=== PATIENT | female | born 1970 | race Caucasian/White ===

== ENCOUNTER 2020-11-20 15:40 | Outpatient (REF) | payer OTHER, SELFPAY | END 2020-11-20 15:41 | disposition home or self-care (01) | LOC: HO.LAB 15:40 | PROVIDERS: Visit Provider Internal Medicine | DX: Z20.828 Contact with and (suspected) exposure to other viral communicable diseases (principal) | CPT/HCPCS: C9803; U0003 ==

== ENCOUNTER 2020-12-02 12:44 | Outpatient (REF) | payer OTHER, SELFPAY | END 2020-12-02 12:45 | disposition home or self-care (01) | LOC: HO.LAB 12:44 | PROVIDERS: PCP Family Medicine; Visit Provider Internal Medicine | DX: Z20.822 Contact with and (suspected) exposure to COVID-19 (principal) | CPT/HCPCS: 36415; C9803; U0003 ==

== ENCOUNTER 2021-07-24 14:30 | Outpatient (RCR) | payer OTHER, SELFPAY | END 2021-07-29 15:00 | disposition home or self-care (01) | LOC: HO.OT 14:30 | PROVIDERS: PCP Family Medicine; Visit Provider Nurse Practitioner Primary Care | DX: M25.522 Pain in left elbow (principal) | CPT/HCPCS: 97033; 97110; 97140; 97165 ==

== ENCOUNTER 2022-01-03 10:39 | Outpatient (REF) | payer OTHER, SELFPAY ==
--- NOTE | ~2022-01-03 | MM_ITS ---
EXAMINATION: MM SCREENING DIGITAL BREAST TOMOSYNTHESIS, BILATERAL CLINICAL INFORMATION: Screening. Asymptomatic. The lifetime risk of breast cancer based on the Tyrer-Cuzick Model is 11%. COMPARISON: Mammography: 05/12/2018, 10/04/2015 TECHNIQUE: Digital breast tomosynthesis is performed in both the craniocaudal and mediolateral oblique views along with computer-aided detection (CAD). Synthesized 2D images are generated from the tomosynthesis. FINDINGS: There are scattered areas of fibroglandular density (ACR BI-RADS breast composition Category b). There are no significant masses, abnormal calcifications, or other abnormalities. Parenchymal pattern is similar to prior studies. There is no developing density or architectural abnormality. The axilla and skin contours are unremarkable. No significant changes. MM/MM tomosynthesis screening BI IMPRESSION: No mammographic evidence of malignancy. ASSESSMENT: BI-RADS 1: Negative RECOMMENDATION: Routine annual mammography screening. This patient's information was entered into a reminder system with a target due date for their next mammogram.
== END 2022-01-03 10:40 | disposition home or self-care (01) ==
LOC: HO.MAMMO 10:39
PROVIDERS: Visit Provider Family Medicine
DX: Z12.31 Encounter for screening mammogram for malignant neoplasm of breast (principal)
CPT/HCPCS: 77063; 77067

== ENCOUNTER 2022-02-28 09:27 | Outpatient (REF) | payer OTHER, SELFPAY ==
[2022-02-28 10:59] LABS: Alanine Aminotransferase 18 U/L (0-31); Albumin Level 3.9 g/dL (3.5-5.0); Alkaline Phosphatase 73 U/L (39-117); Anion Gap 12 (12-20); Aspartate Amino Transferase 15 U/L (5-31); Bilirubin Total 0.5 mg/dL (0.0-1.0); Blood Urea Nitrogen 17 mg/dL (9-16); Calcium 9.2 mg/dL (8.4-10.2); Carbon Dioxide 24 mmol/L (22-29); Chloride 109 mmol/L (96-108); Cholesterol 170 mg/dL; Estimated Glomerular Filt Rate > 60; Glucose Fasting 107 mg/dL (60-99); HDL Cholesterol 38 mg/dL; LDL Cholesterol Calculated 112 mg/dl; Potassium 4.4 mmol/L (3.3-5.1); Sodium 141 mmol/L (135-145); Total Protein 7.3 g/dL (6.5-8.0); Triglycerides 104 mg/dL
[2022-02-28 11:08] LABS: Thyroid Stimulating Hormone 0.01 uIU/mL (0.32-4.0)
== END 2022-02-28 09:28 | disposition home or self-care (01) ==
LOC: HO.LAB 09:27
PROVIDERS: PCP Family Medicine; Visit Provider Family Medicine
DX: E03.9 Hypothyroidism, unspecified (principal); I10 Essential (primary) hypertension
CPT/HCPCS: 36415; 80053; 80061; 84443

== ENCOUNTER 2023-02-13 10:40 | Outpatient (REF) | payer OTHER, SELFPAY ==
--- NOTE | ~2023-02-13 | MM_ITS ---
EXAMINATION: MM SCREENING DIGITAL BREAST TOMOSYNTHESIS, BILATERAL CLINICAL INFORMATION: Screening. Asymptomatic. The lifetime risk of breast cancer based on the Tyrer-Cuzick Model is 6%. COMPARISON: Mammography: 01/03/2022, 05/12/2018, 10/04/2015 TECHNIQUE: Digital breast tomosynthesis is performed in both the craniocaudal and mediolateral oblique views along with computer-aided detection (CAD). Synthesized 2D images are generated from the tomosynthesis. FINDINGS: There are scattered areas of fibroglandular density (ACR BI-RADS breast composition Category b). There are no significant masses, abnormal calcifications, or other abnormalities. No architectural abnormality or developing density or significant change from prior studies. The axilla and skin contours are unremarkable. MM/MM tomosynthesis screening BI IMPRESSION: No mammographic evidence of malignancy. ASSESSMENT: BI-RADS 1: Negative RECOMMENDATION: Routine annual mammography screening. This patient's information was entered into a reminder system with a target due date for their next mammogram.
== END 2023-02-13 10:41 | disposition home or self-care (01) ==
LOC: HO.MAMMO 10:40
PROVIDERS: Visit Provider Advanced Practice Midwife
DX: Z12.31 Encounter for screening mammogram for malignant neoplasm of breast (principal)
CPT/HCPCS: 77063; 77067

== ENCOUNTER 2024-02-11 10:51 | Outpatient (REF) | payer OTHER, SELFPAY ==
[2024-02-11 11:36] LABS: MANUAL DIFF FLAG NO
[2024-02-11 12:03] LABS: Basophils Absolute Auto 0.1 X10*3/uL (0.0-0.2); Basophils Percent Auto 0.7 % (0-2); Eosinophils Absolute Auto 0.2 X10*3/uL (0.0-0.4); Eosinophils Percent Auto 2.7 % (0-4); Hematocrit 44.6 % (37.0-47.0); Hemoglobin 14.2 g/dl (12.0-16.0); Imm Gran Abs Auto 0.02 X10*3/uL (0.00-0.03); Imm Gran Pct Auto 0.3 % (0.0-0.4); Lymphocytes Absolute Auto 2.1 X10*3/uL (1.2-4.9); Lymphocytes Percent Auto 29.7 % (20-40); Mean Corpuscular HGB Conc 31.8 g/dl (31.0-35.0); Mean Corpuscular Hemoglobin 27.9 pg (27.0-33.0); Mean Corpuscular Volume 87.6 fL (80.0-98.0); Mean Platelet Volume 10.5 fL (9.4-12.3); Monocytes Absolute Auto 0.6 X10*3/uL (0.1-1.2); Monocytes Percent Auto 7.7 % (2-11); Neutrophils Absolute Auto 4.2 x10*3/uL (2.0-8.3); Neutrophils Percent Auto 58.9 % (45-73); Platelet Count 310 X10*3/uL (160-400); Red Blood Count 5.09 X10*6/uL (4.20-5.50); Red Cell Distribution Width 14.6 % (11.0-16.0); White Blood Count 7.1 X10*3/uL (4.8-10.8)
[2024-02-11 12:29] LABS: Sodium 141 mmol/L (135-145)
[2024-02-11 12:30] LABS: Alanine Aminotransferase 17 U/L (0-31); Alkaline Phosphatase 84 U/L (39-117); Anion Gap 11 (12-20); Aspartate Amino Transferase 18 U/L (5-31); Bilirubin Direct 0.2 mg/dL (0.0-0.5); Bilirubin Total 0.4 mg/dL (0.0-1.0); Blood Urea Nitrogen 16 mg/dL (9-16); Calcium 9.7 mg/dL (8.4-10.2); Carbon Dioxide 29 mmol/L (22-29); Chloride 106 mmol/L (96-108); Cholesterol 165 mg/dL (<200); Estimated Glomerular Filt Rate > 60; Glucose Random 89 mg/dL (60-115); HDL Cholesterol 43 mg/dL (>40); LDL Cholesterol Calculated 102 mg/dL (<100); Potassium 4.5 mmol/L (3.3-5.1); TSH reflex Free T4 0.87 uIU/mL (0.32-4.0); Triglycerides 100 mg/dL (<150); Vitamin D 25-OH Total 35.2 ng/mL (>30)
[2024-02-13 14:53] LABS: RPR Rapid Plasma Reagin NON-REACTIVE (NON-REACTIVE)
[2024-02-14 04:58] LABS: HBS Num1 1.91 mIU/mL (0-7.99); HBc Num1 0.19 S/CO (0.00-0.79); HBsAGNum1 0.41 S/CO (0.00-0.99); HIV AB/AG Nonreactive (Nonreactive); HIV Num 1 0.05 S/CO (0.00-0.99); Hepatitis A Antibody IgM 0.13 Index (0-0.79); Hepatitis B Core Antibody Nonreactive (Nonreactive); Hepatitis B Surface Antigen Negative (Negative); ~HepC Num1 0.12 S/CO (0.00-0.79); ~Hepatitis A Antibody IgM Nonreactive (Nonreactive); ~Hepatitis B Surface Antibody NONREACTIVE (Nonreactive); ~Hepatitis C Antibody Nonreactive (Nonreactive)
== END 2024-02-11 10:52 | disposition home or self-care (01) ==
LOC: HO.HHCL 10:51
PROVIDERS: Visit Provider Family Medicine
DX: Z11.4 Encounter for screening for human immunodeficiency virus [HIV] (principal); I10 Essential (primary) hypertension; E03.9 Hypothyroidism, unspecified; E55.9 Vitamin D deficiency, unspecified; Z20.2 Contact with and (suspected) exposure to infections with a predominantly sexual mode of transmission
CPT/HCPCS: 36415; 80048; 80061; 80076; 82306; 84443; 85025; 86592; 86704; 86706; 86709; 86803; 87340; 87389

== ENCOUNTER → 2024-11-16 13:00 | Outpatient (BNV) | payer BC, SELFPAY | PROVIDERS: PCP Family Medicine; Visit Provider Internal Medicine | DX: Z12.31 Encounter for screening mammogram for malignant neoplasm of breast (principal) | CPT/HCPCS: 77063; 77067 ==

== ENCOUNTER 2024-11-16 13:01 | Outpatient (REF) | payer BC, SELFPAY | END 2024-11-16 13:02 | disposition home or self-care (01) | LOC: HO.MAMMO 13:01 | PROVIDERS: PCP Family Medicine; Visit Provider Family Medicine | DX: Z12.31 Encounter for screening mammogram for malignant neoplasm of breast (principal) | CPT/HCPCS: 77063; 77067 ==

== ENCOUNTER 2025-02-17 09:59 | Outpatient (REF) | payer BC, SELFPAY ==
[2025-02-17 11:55] LABS: Alanine Aminotransferase 15 U/L (0-31); Albumin Level 3.9 g/dL (3.5-5.0); Alkaline Phosphatase 76 U/L (39-117); Anion Gap 10 (12-20); Aspartate Amino Transferase 18 U/L (5-31); Bilirubin Direct 0.1 mg/dL (0.0-0.5); Bilirubin Total 0.4 mg/dL (0.0-1.0); Blood Urea Nitrogen 18 mg/dL (9-16); Carbon Dioxide 26 mmol/L (22-29); Chloride 110 mmol/L (96-108); Cholesterol 159 mg/dL (<200); Estimated Glomerular Filt Rate > 60; Glucose Random 96 mg/dL (60-115); HDL Cholesterol 40 mg/dL (>40); LDL Cholesterol Calculated 102 mg/dL (<100); Potassium 4.7 mmol/L (3.3-5.1); Sodium 141 mmol/L (135-145); Total Protein 7.4 g/dL (6.5-8.0); Triglycerides 87 mg/dL (<150)
[2025-02-17 12:10] LABS: TSH reflex Free T4 0.23 uIU/mL (0.32-4.0)
[2025-02-17 13:33] LABS: Free T4 (Free Thyroxine) 1.35 ng/dL (0.71-1.85)
== END 2025-02-17 10:00 | disposition home or self-care (01) ==
LOC: HO.LAB 09:59
PROVIDERS: PCP Family Medicine; Visit Provider Family Medicine
DX: I10 Essential (primary) hypertension (principal); E03.9 Hypothyroidism, unspecified; E78.5 Hyperlipidemia, unspecified
CPT/HCPCS: 36415; 80048; 80061; 80076; 84439; 84443

== ENCOUNTER 2025-03-07 10:05 | Outpatient (REF) | payer BC, SELFPAY ==
--- NOTE | ~2025-03-07 | XR_ITS ---
EXAMINATION: XR TOES 2 OR MORE VIEWS LEFT HISTORY: trauma to left great toe 2 days ago, most pain at MTP joint COMPARISON: There are no prior studies available for comparison. FINDINGS: Three views of the left great toe are submitted. Osseous mineralization is normal. There is no fracture or dislocation. The joint spaces are preserved. Soft tissue calcifications lateral to the interphalangeal joint of doubtful significance. XR/XR toe LT min 2V IMPRESSION: No evidence of fracture of the left great toe. Electronically signed by: Jhon Martinez MD 03/07/2025 11:01 AM EDT
--- OUTSIDE RECORDS SUMMARY | 2025-03-07 11:37 | XMS_ITS | Encounter Summary ---
Author Organization [employer] Address [address] [facility] [address] [address] [place] [address] Care Team Providers Care Hand Mounter Name Role Phone Domi Mitchell MD Primary Care Provider +1- [phone] Encounter Details Date Type Department Care Team (Late st Contact Info) Description 01/02/2025 Orders Only [facility] [address] [place] [address] Domi Mitchell MD [address] [place] [address] Social History Tobacco Use Types Packs/Day Years Used Date Smoking Tobacco: Never Smokeless Tobacco: Never Alcohol Use Standard Drinks/Week Comments Never 0 (1 standard drink = 0.6 oz pur e alcohol) Depression Answer Date Recorded Patient Health Questionnaire-9 Score 0 02/11/2024 Patient Health Questionnaire-9 Score 0 02/11/2024 Last PHQ-9: Questionnaire Data Not on file 0 02/11/2024 Housing Stability Answer Date Recorded What is your housing situation today? I have nam de luna 12/21/[address] you li ve. Do you have problems with any of the following? None of the above 12/21/2023 Food Insecurity Answer Date Recorded Within the past 12 months, y ou worried that your food would run out before you got money to buy more: Never True 12/21/2023 Within the past 12 months,th e food you bought just didn't last and you didn't have enough money to get more: Never True Transportation Answer Date Recorded In the past 12 months, has l ack of transportation kept you from medical appts, meetings, work or from getting things needed for daily living? No 12/21/2023 Utilities Answer Date Recorded In the past 12 months, has t he electric, gas, oil or water company threatened to shut off services in your home? No 12/21/2023 Depression Answer Date Recorded Patient Health Questionnaire-2 Score 0 02/11/2024 Comments No Sex and Gender Information Value Date Recorded Sex Assigned at Female 09/21/2022 10:14 AM EDT Legal Sex Female 10:14 AM EDT Gender Identity Female 09/21/2022 10:14 AM EDT Sexual Orientation Choose not to disclose 2021 10:14 AM EDT documented as of this encounter Plan of Treatment Upcoming Encounters Date Type Department Care Team (Late st Contact Info) Description 03/13/2025 3:30 PM EDT Clinical Support [facility] [address] [place] [address] documented as of this encounter Visit Diagnoses Not on filedocumented in this encounter Additional Health Concerns Assessment Noted Time PHQ-9 Depression Total Score: 0 02/11/20 24 9:44 AM EDT documented as of this encounter Care Teams Hand Mounter Relationship Specialty Start Date End Date Domi Mitchell MD [address] [place] [address] PCP - General Family Medicine 11/22/18 documented as of this encounter
--- OUTSIDE RECORDS SUMMARY | 2025-03-07 11:37 | XMS_ITS | Encounter Summary ---
Author Organization [employer] Address [address] [facility] [address] [place] [address] Care Team Providers Care Forging Operator Name Role Phone Domi Mitchell MD Primary Care Provider +1- [phone] Reason for Visit * Reason Onset Date Comments Nurse Triage 03/06/2025 Encounter Details Date Type Department Care Team (Late st Contact Info) Description 03/06/2025 Telephone [facility] [address] [place] [address] Domi Mitchell MD [address] [place] [address] Nurse Triage Social History Tobacco Use Types Packs/Day Years [...] situation today? I have nam de luna 02/05/[address] you li ve. Do you have problems with any of the following? None of the above 02/05/2025 Food Insecurity Answer Date Recorded Within the past 12 months, y ou worried that your food would run out before you got money to buy more: Sometimes True 2024 Within the past 12 months,th e food you bought just didn't last and you didn't have enough money to get more: Sometimes True 02/05/2025 Transportation Answer Date Recorded In the past 12 months, has l ack of transportation kept you from medical appts, meetings, work or from getting things needed for daily living? No 02/05/2025 Utilities Answer Date Recorded In the past 12 months, has t he electric, gas, oil or water company threatened to shut off services in your home? No 02/05/2025 Depression Answer Date Recorded Patient Health Questionnaire-2 Score 0 02/11/2024 Internet Access Answer Date Recorded Internet Access Q1 Yes 02/05/2025 Internet Access Q2 Not on file 02/05/2025 Comments No Sex and Gender Information Value Date Recorded Sex Assigned at Female 09/21/2022 10:14 AM EDT Legal Sex Female 10:14 AM EDT Gender Identity Female 09/21/2022 10:14 AM EDT Sexual Orientation Choose not to disclose 2021 10:14 AM EDT documented as of this encounter Miscellaneous Notes * Telephone Encounter - Dorina Dalton RN - 03/06/2025 3:43 PM EDT Images from the original note were not included. Call returned to Rosalva Thomas to triage below. Reports inury to right great big toe. Per pt having swelling, pain with wearing closed toe shoes. Pt used OTC ibuprofen with mild relief. Has not been able to elevate or gilma tape. No bruising reported. [facility] of disposition[facility] on teams at time of call. Reviewed [facility] operating hours andthat wait times vary. Reviewed home care advise, ER precautions and reasons to call back. Protocol Used: Toe Injury (Adult) Protocol-Based Disposition: See in Office or Video Visit Today or Tomorrow Video visit offer not recorded Positive Triage Question: * Bad limp or can't wear shoes or sandals * All higher-acuity triage questions were negative Care Advice Discussed: * Reassurance and Education - Sprained Toe (Jammed, Stubbed Toe) * Use a Cold Pack for Pain, Swelling, or Bruising * Gilma-Tape Splinting * Reasons To Call Back - Pain becomes severe - You become worse FW: My toe Received: Today Dorina Dalton RN P [facility] T[facility] Nurse Previous Messages My toe (Newest Message First) View All Conversations on this Encounter You routed conversation to [facility] Triage Nurse5 hours ago (9:33 AM) Rosalva Rios [facility] Clinical Support (supporting Domi Mitchell MD)6 hours ago (9:16 AM) TD I had a student step on my toe yesterday at work and today my toe is killing me it's swollen and sore to the touch can I go to the walk in center after work today documented in this encounter Plan of Treatment Upcoming Encounters Date Type Department Care Team (Late st Contact Info) Description 03/13/2025 3:30 PM EDT Clinical Support [facility] [address] [place] [address] documented as of this encounter Visit Diagnoses Not on filedocumented in this encounter Additional Health Concerns Assessment Noted Time PHQ-9 Depression Total Score: 0 02/11/20 24 9:44 AM EDT documented as of this encounter Care Teams Forging Operator Relationship Specialty Start Date End Date Domi Mitchell MD [address] [place] [address] PCP - General Family Medicine 11/22/18 documented as of this encounter
--- OUTSIDE RECORDS SUMMARY | 2025-03-07 11:37 | XMS_ITS | Encounter Summary ---
Author Organization [employer] Address [address] [place] [address] [address] [place] [address] Care Team Providers Care Industrial Plant Custodian Name Role Phone Domi Mitchell MD Primary Care Provider +1- [phone] Encounter Details Date Type Department Care Team (Late st Contact Info) Description 12/14/2022 Abstract [facility] [address] [place] [address] Domi Mitchell MD [address] [place] [address] Dietary counseling; Exercise counseling Social History Tobacco Use Types Packs/Day Years Used Date Smoking Tobacco: Never Smokeless Tobacco: Never Alcohol Use Standard Drinks/Week Comments Never 0 (1 standard drink = 0.6 oz pur e alcohol) Depression Answer Date Recorded Patient Health Questionnaire-9 Score 0 12/14/2022 Depression Answer Date Recorded Patient Health Questionnaire-2 Score 0 12/14/2022 Comments Unknown Sex and Gender Information Value Date Recorded Sex Assigned at Female 09/21/2022 10:14 AM EDT Legal Sex Female 10:14 AM EDT Gender Identity Female 09/21/2022 10:14 AM EDT Sexual Orientation Choose not to disclose 2021 10:14 AM EDT COVID-19 Exposure Response Date Recorded In the last 10 days, have yo u been in contact with someone who was confirmed or suspected to have Coronavirus/COVID-19? No / Unsure 12/14/2022 9:02 AM EST documented as of this encounter Plan of Treatment Upcoming Encounters Date Type Department Care Team (Late st Contact Info) Description 03/13/2025 3:30 PM EDT Clinical Support [facility] [address] [place] [address] documented as of this encounter Procedures Procedure Name Priority Date/Time Associated Diagnosis Comments HM COLONOSCOPY Routine 01/31/2022 documented in this encounter Results * Hm Colonoscopy (01/31/2022) Colonoscopy cologuard us Historical Provider HEALTH MAINTENANCE Final Result documented in this encounter Visit Diagnoses Diagnosis Dietary counseling Dietary surveillance and counseling Exercise counseling documented in this encounter Additional Health Concerns Assessment Noted Time PHQ-9 Depression Total Score: 0 12/14/19 23 9:13 AM EST documented as of this encounter Care Teams Industrial Plant Custodian Relationship Specialty Start Date End Date Domi Mitchell MD [address] [place] [address] PCP - General Family Medicine 11/22/18 documented as of this encounter
--- OUTSIDE RECORDS SUMMARY | 2025-03-07 11:37 | XMS_ITS | Encounter Summary ---
Author Organization [employer] Address [address] [place] [address] [address] [place] [address] Care Team Providers Care Orthopedic Shoe Fitter Name Role Phone Domi Mitchell MD Primary Care Provider +1- [phone] Encounter Details Date Type Department Care Team (Late st Contact Info) Description 11/09/2022 Orders Only [facility] [address] [place] [address] Blaire Gaytan LPN Social History Tobacco Use Types Packs/Day Years Used Date Smoking Tobacco: Never Assessed Comments Unknown Sex and Gender Information Value [...] Description 03/13/2025 3:30 PM EDT Clinical Support [facility] [address] [place], [place] [id number] documented as of this encounter Visit Diagnoses Not on filedocumented in this encounter Care Teams Orthopedic Shoe Fitter Relationship Specialty Start Date End Date Domi Mitchell MD [address] [place] [address] PCP - General Family Medicine 11/22/18 documented as of this encounter
--- OUTSIDE RECORDS SUMMARY | 2025-03-07 11:37 | XMS_ITS | Clinical Summary ---
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 Active fluticasone (Flonase Allergy Relief) 50 MCG/ACT nasal spray Administer 1 spray into each nostril in the morning. Shake gently. Before first use, prime pump. After use, clean tip and replace cap. 16 g 12 024 Active cholecalciferol (Vitamin D3) 25 MCG (1000 UT) tabletIndications :Vitamin D deficiency TAKE 1 TABLET (25 MCG) BY MOUTH IN THE MORNING 90 tablet 3 025 Active Blood Pressure kit Check blood pressure three times a week, LARGE CUFF 1 kit 025 Active levothyroxine (Synthroid) 112 MCG tabletIndications :Acquired hypothyroidism Take 1 tablet (112 mcg) by mouth before breakfast. 90 tablet 3 025 2025 Active predniSONE (Deltasone) 20 MG tablet Take 2 tablets (40 mg) by mouth Once per day for 5 days. 10 tablet 025 2024 Active ibuprofen 800 MG tabletIndications :Pain Take 1 tablet (800 mg) by mouth every 8 (eight) hours if needed for moderate pain. 30 tablet 3 025 Active ibuprofen 800 MG tabletIndications :Pain TAKE 1 TABLET BY MOUTH EVERY 8 HOURS NEEDED FOR MILD PAIN. 50 tablet 3 024 2024 Discontinued(R eorder (will not trigger notification to Pharmacy)) levothyroxine (Synthroid, Levoxyl) 125 MCG tabletIndications :Acquired hypothyroidism TAKE 1 TABLET BY MOUTH EVERY DAY 90 tablet 3 025 2024 Discontinued Blood Pressure kitIndications:Be nign hypertension Check bp three times a week 1 kit 025 2024 Discontinued(A lternate therapy) Active Problems Problem Noted Date Diagnosed Date Encounter for screening mamm ogram for malignant neoplasm of breast 02/14/2025 Exercise counseling 02/14/2025 Assessment & Plan (02/14/2025 3:04 PM EDT): Exercise Recommendations: At least 150 minutes of moderate-intensity physical activity per week, or an equivalent combination of moderate- and vigorous-intensity activity Dietary counseling 02/14/2025 Assessment & Plan (02/14/2025 3:04 PM EDT): Dietary Recommendations: Fruits, vegetables, whole grains, protein foods, and fat-free or low-fat dairy products are healthy choices. Eat different types of protein foods in your diet. This can include seafood, lean meats, poultry, beans, peas, lentils, nuts, seeds, soy products, and eggs. Limit foods and beverages higher in added sugars, saturated fat, and sodium. Screening for colon cancer 02/14/2025 Overview (02/21/2025): Colonoscopy done 01/31/2022 -Cologuard negative 01/2625 Assessment & Plan (02/14/2025 3:02 PM EDT): Colonoscopy done 01/31/2022 -ColoGUARD sent 02/13/25 Right knee pain 12/21/2024 Assessment & Plan (12/21/2024 11:36 AM EST): Improved. Stretching reviewed. Return if symptoms do not improve and consider x ray and physical therapy referral. Cardiac risk counseling 03/31/2024 Overview (02/14/2025): Calculated 02/14/25: low risk The 10-year ASCVD risk score (Quinton LOVE, et al., 2019) is: 2% Values used to calculate the score: Age: 54 years Sex: Female Is Non- : No Diabetic: No Tobacco smoker: No Systolic Blood Pressure: 132 mmHg Is BP treated: No HDL Cholesterol: 43 mg/dL Total Cholesterol: 165 mg/dL Lab Results Component Value Date LDLCHOL 112 (H) 12/14/2022 -Tobacco cessation: not applicable -Statin therapy:N/A -Importance of moderate physical activity and nutrition interventions discussed. External hemorrhoid 02/11/2024 Assessment & Plan (02/11/2024 10:32 AM EDT): Non thrombosed. Avoid constipation. Other specified health status 04/06/2023 Overview (02/14/2025): -next physical due after 02/14/26 -Referral made to [facility] 02/11/2024 -dental home is [facility] proxy paperwork completed by the patient 02/11/2024 Assessment & Plan (02/14/2025 3:10 PM EDT): -next physical due after 02/14/26 -Referral made to [facility] 02/11/2024 -dental home is [facility] [place] proxy paperwork completed by the patient 02/11/2024 Assessment & Plan (02/11/2024 10:20 AM EDT): -next physical due after 02/10/2025 -Referral made to [facility] 02/11/2024 -dental home is [facility] proxy paperwork completed by the patient 02/11/2024 Family planning 12/11/2022 Overview (12/11/2022): She had mirena sometimes in 2016 with energy director but recalled me putting it in. She is due for having it removal will refer to Angeli goldman Assessment & Plan (12/11/2022 9:00 AM EST): She had mirena sometimes in 2016 with energy director but recalled me putting it in. She is due for having it removal will refer to Angeli goldman Left elbow pain 12/11/2022 Overview (12/11/2022): Occupational Therapy for L forearm pain. Reason for referral: L forearm pain, Clinical information/comments: 50 yo w/ 1 mo L forearm pain, worse w/ movement/pronation. Assessment & Plan (01/29/2023 11:37 AM EST): Much better with new brace. Assessment & Plan (12/11/2022 9:01 AM EST): Occupational Therapy for L forearm pain. Reason for referral: L forearm pain, Clinical information/comments: 50 yo w/ 1 mo L forearm pain, worse w/ movement/pronation. Left forearm pain 12/11/2022 Overview (02/14/2025): Pain just below L elbow, worse w/ movement/pronation, a/w decreased strength in L hand. Pain improves w/ heat, ibuprofen, OTC band. Recommended to cont with above, recommend ice as well, will refer for OT. pt declines work note. Let us know if sx worsen/persist. Assessment & Plan (12/11/2022 9:02 AM EST): Pain just below L elbow, worse w/ movement/pronation, a/w decreased strength in L hand. Pain improves w/ heat, ibuprofen, OTC band. Recommended to cont with above, recommend ice as well, will refer for OT. pt declines work note. Let us know if sx worsen/persist. Benign hypertension 01/19/2022 Overview (02/14/2025): Slightly elevated in clinic. Goal <130/80 -prescribed home monitor and encouraged to take regular logs at home. 3/26/25 -Off medications, might need to start again if remains elevated at home. Assessment & Plan (02/14/2025 3:12 PM EDT): Slightly elevated in clinic. Goal <130/80 -prescribed home monitor and encouraged to take regular logs at home. 02/14/25 -Off medications, might need to start again if remains elevated at home. Assessment & Plan (02/11/2024 10:29 AM EDT): Well controlled off meds. Continue to do home monitors. Assessment & Plan (01/29/2023 11:36 AM EST): Well controlled off meds. Assessment & Plan (12/14/2022 9:57 AM EST): Not controlled. Home BP machine given. Pt will keep a log. Will f/u 1 month. Acquired hypothyroidism 04/07/2012 Overview (02/21/2025): Lab Results Component Value Date TSH 0.23 (L) 02/17/2025 TSH 0.87 02/11/2024 TSH 0.01 (L) 12/14/2022 -ordered repeat labs Nov 2024 -levothyroid decreased to 112 mch from 125mcg 02/21/25 Assessment & Plan (02/14/2025 3:31 PM EDT): Lab Results Component Value Date TSH 0.87 02/11/2024 TSH 0.01 (L) 12/14/2022 Continue levothyroxine 150 mcg daily. -ordered repeat labs Nov 2024 Assessment & Plan (02/11/2024 10:17 AM EDT): Continue levothyroxine 150 mcg daily. Lab Results Component Value Date TSH 0.01 (L) 12/14/2022 Assessment & Plan (01/29/2023 11:38 AM EST): TSH low, decreased levothyroxine to 125 mcg daily 12/14/22.\ Will recheck. Assessment & Plan (12/11/2022 8:59 AM EST): TSH was at goal on 11/2018 at 0.40. Continue levothyroxine 150 mcg daily. Allergic rhinitis 04/07/2012 Acute sinusitis 04/07/2012 Obesity 04/07/2012 Overview (02/14/2025): Discussed weight, diet, exercise with patient in relation to health conditions. Used motivational interviewing to illicit change talk and established initial goals with patient. Assessment & Plan (02/14/2025 3:05 PM EDT): Discussed weight, diet, exercise with patient in relation to health conditions. Used motivational interviewing to illicit change talk and established initial goals with patient. Resolved Problems Problem Noted Date Diagnosed Date Resolved Date Annual physical exam 02/11/2024 025 Sinus arrest 01/22/2023 01/29/2023 Encounters Date Type Department Care Team Description 03/07/2025 9:20 AM EDT Office Visit [facility] [address] [place] [phone] Pain of great toe, left (Primary Dx); Benign hypertension; Pain 03/06/2025 Telephone [facility] [address] [place] [phone] Domi Mitchell MD Nurse Triage 02/21/[address] [address] Domi Mitchell MD Results 02/21/2025 Orders Only [address] [address] Domi Mitchell MD Acquired hypothyroidism (Primary Dx) 02/17/2025 Orders Only [address] [address] Domi Mitchell MD 02/14/2025 2:45 PM EDT Office Visit [address] [address] Domi Mitchell MD Benign hypertension (Primary Dx); Acquired hypothyroidism; Class 3 severe obesity due to excess calories with body mass index (BMI) of 40.0 to 44.9 in adult, unspecified whether serious comorbidity present (CMS/HCC); Exercise counseling; Dietary counseling; Screening for colon cancer; Encounter for immunization; Other specified health status; Skin tag 02/14/2025 Travel 02/13/[address] [address] Domi Mitchell MD chartprep 02/05/2025 Patient Outreach [address] [address] Domi Mitchell MD Care Coordination (CHW outreach for SDOH food needs-referral completed /) 02/05/2025 Patient Outreach [address] [address] Domi Mitchell MD Pre-visit Planning (SDOH Screening positive and Tobacco screening negative) 01/02/2025 Orders Only [address] [address] Domi Mitchell MD 12/21/2024 9:15 AM EST Office Visit [address] [address] Domi Mitchell MD Right knee pain, unspecified chronicity (Primary Dx); Encounter for immunization; Screening for colon cancer; Acquired hypothyroidism; Dyslipidemia; Benign hypertension 12/21/2024 Travel 12/19/[address] [address] Domi Mitchell MD nurse traige 12/13/[address] [address] Domi Mitchell MD Acquired hypothyroidism; Vitamin D deficiency from Last 3 Months Immunizations Name Administration Dates Next Due Hep B, adult 02/14/2025,12/21/2024 Influenza injectable quadriv alent IIV4 with preservative 10/22/2016 Influenza injectable quadriv alent preservative free 08/17/2023,09/14/2022,08/03/2021,2018,12/08/2018,10/04/2015 Influenza, IIV3, injectable 09/21/2014 Influenza, Injectable, MDCK, preservative free 08/15/2024 MMR 10/09/2020,04/27/2013 Moderna Covid-19 Vaccine 12+ 11/26/2021 Pfizer Covid-19 Vaccine 12+ 01/13/2021, Tdap 10/04/2015 Zoster, Recombinant 07/03/2021,04/30/2021 Family History Medical History Relation Name Comments Arthritis Mother Asthma Mother Hypertension Mother high blood sugar Mother Relation Name Status Comments Mother Social History Tobacco Use Types Packs/Day Years Used Date Smoking Tobacco: Never Smokeless Tobacco: Never Tobacco Cessation:Counseling Given: Not Answered Alcohol Use Standard Drinks/Week Comments Never 0 [...] not to disclose 2021 10:14 AM EDT Last Filed Vital Signs Vital Sign Reading Time Taken Comments Blood Pressure 174/104 03/07/2025 10:14 AM EDT Pulse 67 03/07/2025 9:22 AM EDT Temperature 36.7 ??C (98 ??F) 03/07/2025 9:22 AM EDT Respiratory Rate 17 03/07/2025 9:22 AM EDT Oxygen Saturation 96% 03/07/2025 9:22 AM EDT Inhaled Oxygen Concentration - - Weight 108 kg (238 lb 9.6 oz) 03/07/2025 9:22 AM EDT Height 157.5 cm (5' 2 ) 02/14/2025 2:51 PM EDT Body Mass Index 43.64 02/14/2025 2:51 PM EDT Plan of Treatment Upcoming Encounters Date Type Department Care Team (Late st Contact Info) Description 03/13/2025 3:30 PM EDT Clinical Support [address] [phone] Health Maintenance Due Date Last Done Comments CT Colonography 1970 FIT 1970 Sigmoidoscopy 1970 Colonoscopy 01/31/2025 01/31/2022 Depression Screening 02/10/2025 02/11/2024, 02/11/20 24 Colorectal Cancer Screening 02/16/2025 Hepatitis B Vaccines (3 of 3 - 19+ 3-dose series) 06/20/2025 02/14/2025, 12/21/2024 DTaP/Tdap/Td Vaccines (2 - Td or Tdap) 10/04/2025 10/04/2015 Alcohol/Substance Use Screening 12/21/2025 12/21/2024 COVID-19 Vaccine ( season) 2025 10/02/2022, 11/26/2021, 01/13/2021, Additional history exists Postponed from 07/23/2024 (Patient Refused) Pneumococcal Vaccine: 50+ Years (1 of 1 - PCV) 12/21/2025 Postponed from 2020 (Patient Refused) SDOH Screening 02/05/2026 02/05/2025 FOBT 02/15/2026 02/15/2025 Tobacco Screening 03/07/2026 03/07/2025 Cervical Cancer Screening 09/11/2026 HPV/Cotest 09/11/2026 09/11/2021 Pap Smear 09/11/2026 09/11/2021, 09/11/2021 Mammogram 11/16/2026 11/16/2024, 01/21, 01/03/2022, Additional history exists FIT DNA/Cologuard 02/16/2028 02/15/2025, , 01/31/2022 Lipid Panel 02/17/2030 02/17/2025, 01/21, 12/14/2022 RSV Patients and Patients Aged 60 years or older (1 - 1-dose 75+ series) 2045 Zoster Vaccines Completed 07/03/2021, 04/30/2021 HIV Screening Completed 02/11/2024, 12/14/2022 Hepatitis C Screening Completed 02/11/2024, 023 Influenza Vaccine Completed 08/15/2024, , 09/14/2022, Additional history exists HIB Vaccines Aged Out No longer eligi ble based on patient's age to complete this topic HPV Vaccines Aged Out No longer eligi ble based on patient's age to complete this topic Hepatitis A Vaccines Aged Out No long er eligible based on patient's age to complete this topic IPV Vaccines Aged Out No longer eligi ble based on patient's age to complete this topic Meningococcal Vaccine Aged Out No mike amanda eligible based on patient's age to complete this topic RSV under 20 months Aged Out No longe r eligible based on patient's age to complete this topic Rotavirus Vaccines Aged Out No longer eligible based on patient's age to complete this topic Procedures Procedure Name Priority Date/Time Associated Diagnosis Comments XR TOES 2+ VIEWS LEFT Routine 03/07/2025 10:05 AM EDT Pain of great toe, left T4, FREE Routine 02/17/2025 10:09 AM EDT TSH W/REFLEX TO FT4 Routine 02/17/2025 1 0:09 AM EDT Acquired hypothyroidism BASIC METABOLIC PANEL Routine 02/17/2025 10:09 AM EDT Benign hypertension LIPID PANEL, STANDARD Routine 02/17/2025 10:09 AM EDT Dyslipidemia HEPATIC FUNCTION PANEL Routine 02/17/2025 10:09 AM EDT Dyslipidemia HM FIT DNA/COLOGUARD CANCER SCREENING Routine 02/15/2025 SKIN EXCISION Routine 02/14/2025 3:16 PM EDT Skin tag LAB COLOGUARD?? COLON CANCER SCREEN Routine 02/13/2025 7:30 AM EDT Screening for colon cancer BI MAMMOGRAM SCREENING TOMOSYNTHESIS BILATERAL Routine 11/16/2024 1:17 PM EST HEPATITIS PANEL, GENERAL Routine 02/11/2024 10:55 AM EDT Routine screening for STI (sexually transmitted infection) HIV 1/2 ANTIGEN/ANTIBODY, FOURTH GENERATION W/RFL Routine 02/11/2024 10:55 AM EDT Routine screening for STI (sexually transmitted infection) HM COLONOSCOPY Routine 01/31/2022 THINPREP IMAGING PAP AND HPV MRNA E6/E7, WITH CT/NG, TRICHOMONAS Routine 09/11/2021 3:55 PM EDT PAP SMEAR Routine 09/11/2021 12:00 AM EDT from Last 3 Months or Most Recently Relevant to Health Maintenance Results * XR Toes 2+ Left (03/07/2025 10:05 AM EDT) Anatomical Region Laterality Modality Lower Extremities, Toes Left [facility] 03/07/2025 10:0 5 AM EDT Narrative 03/07/2025 11:03 AM EDT ?[place] [facility] ?[address] ?[place] [address] ?XRay Report ? Signed ? Patient: Deschaine,Rosalva M ?MR#: [id number] ?? [id number] ? : 1970 ?Acct:[id number] ? Age/Sex: 54 / F ?ADM Date: 03/07/25 ? Loc: HO.HHCX ? Attending Dr: Sabsa Loya MD ? Ordering Physician: SABAS LOYA MD ?? Date of Service: 03/07/25 ?? Procedure(s): XR toe LT min 2V ?? Accession Number(s): [id number] ? cc: SABAS LOYA MD ? EXAMINATION: ??XR TOES 2 OR MORE VIEWS LEFT ? HISTORY: trauma to left great toe 2 days ago, most pain at MTP joint ? COMPARISON: There are no prior studies available for comparison. ? FINDINGS: ? Three views of the left great toe are submitted. ??Osseous ?? mineralization is normal. ??There is no fracture or dislocation. ??The ?? joint spaces are preserved. ??Soft tissue calcifications lateral to the ?? interphalangeal joint of doubtful significance. ? XR/XR toe LT min 2V ?? IMPRESSION: ? No evidence of fracture of the left great toe. ? Electronically signed by: ??Jhon Martinez MD ??03/07/2025 11:01 AM EDT ? Dictated By: ?Jhon Martinez MD ? Signed By: ?<Electronically signed by Jhon Martinez MD in OV> ?03/07/25 1101 ? DD/ 1005 ? TD/TT: 03/07/25 1055 ? Manager Multicultural: ? Procedure Note Calos Mojica - 03/07/[address] [address] XRay Report Signed Patient: Rosavla Thomas MMR#: [id number] : 1970Acct:[id number] Age/Sex: 54 / FADM Date: 03/07/25 Loc: HO.HHCX Attending Dr: Sabas Loya MD Ordering Physician: SABAS LOYA MD Date of Service: 03/07/25 Procedure(s): XR toe LT min 2V Accession Number(s): [id number] cc: SABAS LOYA MD EXAMINATION: XR TOES 2 OR MORE VIEWS LEFT HISTORY: trauma to left great toe 2 days ago, most pain at MTP joint COMPARISON: There are no prior studies available for comparison. FINDINGS: Three views of the left great toe are submitted. Osseous mineralization is normal. There is no fracture or dislocation. The joint spaces are preserved. Soft tissue calcifications lateral to the interphalangeal joint of doubtful significance. XR/XR toe LT min 2V IMPRESSION: No evidence of fracture of the left great toe. Electronically signed by: Jhon Martinez MD 03/07/2025 11:01 AM EDT RP Dictated By: Jhon Martinez MD Signed By: <Electronically signed by Jhon Martinez MD in OV> 03/07/25 1101 DD/ 1005 TD/TT: 03/07/25 1055 Manager Multicultural: Sabas Loya MD IMG XR PROCEDURES Final Result * (ABNORMAL) TSH with Reflex to Free T4 (02/17/2025 10:09 AM EDT) TSH reflex Free T4 0.23(L) 0.32 - 4.0 uIU/mL [facility] Blood 02/17/2025 10:0 9 AM EDT 02/17/2025 10:09 AM EDT Domi Mitchell MD LAB BLOOD ORDERABLES Final Result Performing Organization Address City/State/[facility] Co de Phone Number [facility] [address] [place] [phone] * T4, Free (02/17/2025 10:09 AM EDT) Free T4 (Free Thyroxine) 1.35 0.71 - 1.85 ng/dL [facility] 02/17/2025 10:0 9 AM EDT 02/17/2025 10:09 AM EDT Domi Mitchell MD LAB BLOOD ORDERABLES Final Result [facility] [address] [place] [address] [phone] * Hepatic Function Panel (02/17/2025 10:09 AM EDT) Bilirubin, Total 0.4 0.0 - 1.0 mg/dL [facility] Bilirubin, Direct 0.1 0.0 - 0.5 mg/dL [facility] Aspartate Amino Transferase 18 5 - 31 U/L [facility] Alanine Aminotransferase 15 0 - 31 U/L [facility] Total Protein 7.4 6.5 - 8.0 g/dL [facility] Albumin Level 3.9 3.5 - 5.0 g/dL [facility] Alkaline Phosphatase 76 39 - 117 U/L [facility] Blood Venous blood specimen / Unknown 02/17/2025 10:09 AM EDT 02/17/2025 10:09 AM EDT Domi Mitchell MD LAB BLOOD ORDERABLES Final Result Performing Organization Address City/[facility]/ZIP Co de Phone Number [facility] [address] [place] [phone] [phone] * (ABNORMAL) Lipid Panel, Standard (02/17/2025 10:09 AM EDT) Triglycerides 87 <150 mg/dL [facility] Comment:Desirable Triglyceri de: less than 150 mg/dLBorderline High Triglyceride 150-199 mg/dLHigh Triglyceride: 200-499 mg/dLVery High Triglyceride: greater than or equal to 5OO mg/dL Cholesterol 159 <200 mg/dL [facility] Comment:Desirable Cholestero l: less than 200 mg/dLBorderline High Cholesterol: 200-239 mg/dLHigh Cholesterol: greater than 239 mg/dL LDL Cholesterol Calculated 102(H) <100 mg/dL [facility] Comment:Desirable LDL: less than 100 mg/dLNear Optimal/Above Optimal LDL: 110- 129 mg/dLBorderline High LDL: 130-159 mg/dLHigh LDL: 160-189 mg/dLVery High LDL: greater than or equal to 190 mg/dL HDL Cholesterol 40(L) >40 mg/dL [facility] Comment:Desirable HDL: great er than 40 mg/dL Note: This HDL assay may give artificially low results in patients with liver disease. Blood Venous blood specimen / Unknown 02/17/2025 10:09 AM EDT 02/17/2025 10:09 AM EDT Domi Mitchell MD LAB BLOOD ORDERABLES Final Result Performing Organization Address [facility] Co de Phone Number [facility] [address] [place] [phone] * (ABNORMAL) Basic Metabolic Panel (02/17/2025 10:09 AM EDT) Sodium 141 135 - 145 mmol/L [facility] Potassium 4.7 3.3 - 5.1 mmol/L [facility] Chloride 110(H) 96 - 108 mmol/L [facility] Carbon Dioxide 26 22 - 29 mmol/L [facility] Anion Gap 10(L) 12 - 20 [facility] Urea Nitrogen (BUN) 18(H) 9 - 16 mg/dL [facility] Creatinine, Serum 0.79 0.5 - 1.4 mg/dL [facility] Estimated Glomerular Filt Rate >60 [facility] Comment:Chronic Kidney Disea se: Estimated GFR < 60 mL/min/[id number] Kidney Disease: Estimated GFR < 15 mL/min/1.73m2 Glucose 96 60 - 115 mg/dL [facility] Calcium 9.0 8.4 - 10.2 mg/dL [facility] Blood Venous blood specimen / Unknown 02/17/2025 10:09 AM EDT 02/17/2025 10:09 AM EDT Domi Mitchell MD LAB BLOOD ORDERABLES Final Result Performing Organization Address City/[facility]/ZIP Co de Phone Number [facility] [address] [place] [address] [phone] * FIT DNA/Cologuard Cancer Screening (02/15/2025) Cologuard Cancer Screen Negative Stool Historical Provider HEALTH MAINTENANCE Final Result * Skin excision (02/14/2025 3:16 PM EDT) Narrative Domi Mitchell MD - 02/14/2025 3:16 PM EDT Domi Mitchell MD ? 02/14/2025 ??5:01 PM Skin excision Date/Time: 02/14/2025 3:16 PM Performed by: Domi Mitchell MD Authorized by: Domi Mitchell MD ?? Consent: ??Consent obtained: ??Verbal ??Consent given by: ??Patient ??Risks, benefits, and alternatives were discussed: yes ?Risks discussed: ??Bleeding, infection and pain ??Alternatives discussed: ??Observation, referral and no treatment [place] protocol: ??Procedure explained and questions answered to patient or proxy's satisfaction: yes ?Immediately prior to procedure, a time out was called: yes ?Patient identity confirmed: ??Verbally with patient Number of Lesions: 2 Lesion 1: ??Skin lesion 1 location: below left breast. ??Initial size (mm): 20 ??Malignancy: benign lesion ?Destruction method: scissors used for extraction ?Closure complexity: simple ?? Lesion 2: ??Skin lesion 2 location: below left breast. ??Initial size (mm): 20 ??Malignancy: benign lesion ?Closure complexity: simple ?? us Domi Mitchell MD DERM PROCEDURE ORDERABLES Final Result * Cologuard?? colon cancer screening (02/13/2025 7:30 AM EDT) Cologuard Result Negative Negative 02/18/20 4:43 PM EDT [employer] (CLIA #:[id number]) Comment: NEGATIVE TEST RESULT. A negative Cologuard result indicates a low likelihood that a colorectal cancer (CRC) or advanced adenoma (adenomatous polyps with more advanced pre-malignant features) ??is present. The chance that a person with a negative Cologuard test has a colorectal cancer is less than 1 in 1500 (negative predictive value >99.9%) or has an ??advanced adenoma is less than ??5.3% (negative predictive value 94.7%). These data are based on a prospective cross-sectional study of 10,000 individuals at average risk for colorectal cancer who were screened with both Cologuard and colonoscopy. (Tamar Rivera et al, N Engl J Med 2014;370(14):1286- 1297) The normal value (reference range) for this assay is negative. COLOGUARD RE-SCREENING RECOMMENDATION: Periodic colorectal cancer screening is an important part of preventive healthcare for asymptomatic individuals at average risk for colorectal cancer. ??Following a negative Cologuard result, the [place] [employer] and U.S. Multi-Society Task Force screening guidelines recommend a Cologuard re-screening interval of 3 years. References: [place] [employer] Guideline for Colorectal Cancer Screening: https://www.cancer.org/cancer/uuumb-ivkcfe-gtxedx/zfdrtswek-azdrjskkq-ccsneof/ac s-rec ommendations.html.; Ricardo DK, Judi AARON, Mendez JuniorK, Colorectal Cancer Screening: Recommendations for Physicians and Patients from the U.S. Multi-Society Task Force on Colorectal Cancer Screening , Am J Gastroenterology 2017; 112:6610-6197. TEST DESCRIPTION: Composite algorithmic analysis of stool DNA-biomarkers with hemoglobin immunoassay. ?? Quantitative values of individual biomarkers are not reportable and are not associated with individual biomarker result reference ranges. Cologuard is intended for colorectal cancer screening of adults of either sex, 45 years or older, who are at average-risk for colorectal cancer (CRC). Cologuard has been approved for use by the U.S. FDA. The performance of Cologuard was established in a cross sectional study of average-risk adults aged 50-84. Cologuard performance in patients ages 45 to 49 years was estimated by sub-group analysis of near-age groups. Colonoscopies performed for a positive result may find as the most clinically significant lesion: colorectal cancer [4.0%], advanced adenoma (including sessile serrated polyps greater than or equal to 1cm diameter) [20%] or non- advanced adenoma [31%]; or no colorectal neoplasia [45%]. These estimates are derived from a prospective cross-sectional screening study of 10,000 individuals at average risk for colorectal cancer who were screened with both Cologuard and colonoscopy. (Tamar Hung al, N Engl J Med 2014;370(14):2092-2655.) Cologuard may produce a false negative or false positive result (no colorectal cancer or precancerous polyp present at colonoscopy follow up). A negative Cologuard test result does not guarantee the absence of CRC or advanced adenoma (pre-cancer). The current Cologuard screening interval is every 3 years. ([place] [employer] and U.S. Multi-Society Task Force). Cologuard performance data in a 10,000 patient pivotal study using colonoscopy as the reference method can be accessed at the following location: www.LiveHotSpot/results. Additional description of the Cologuard test process, warnings and precautions can be found at www.OjOs.comogeTectrd.com. Stool specimen (specimen) 02/13/2025 7:30 AM EDT 02/15/2025 12:39 PM EDT Domi Mitchell MD LAB MOLECULAR DIAGNOSTICS ORDERABLES Final Result [employer] (CLIA #:[id number]) [address] [place] [address], * BI Mammogram Screening Tomosynthesis Bilateral (11/16/2024 1:17 PM EST) Anatomical Region Laterality Modality Breast Bilateral Mammography 11/16/2024 1:17 PM EST Narrative 11/28/2024 4:57 PM EST ? [facility] ? [address] ?[place] [address] ? Mammography Report ? Signed ? Patient: Deschaine,Rosalva M ?MR#: [id number] ?? [id number] ? : 1970 ?Acct:[id number] ? Age/Sex: 54 / F ?ADM Date: 12/26/24 ? Loc: HO.MAMMO ? Attending Dr: Domi Mitchell MD ? Ordering Physician: Domi Mitchell MD ?Results: 1N ?? egative ? Date of Service: 11/16/24 ?Follow Up: 1 Year From Orig ?? inal Mammogram ? Procedure(s): MM tomosynthesis screening BI ?? Accession Number(s): [id number] ? cc: Domi Mitchell MD ? EXAMINATION: ?? MM SCREENING DIGITAL BREAST TOMOSYNTHESIS, BILATERAL ? CLINICAL INFORMATION: ? Screening. Asymptomatic. ? COMPARISON: ?? Mammography: Comparison is made with available priors ? TECHNIQUE: ?? Digital breast mammography with tomosynthesis is performed in both the ?? craniocaudal and mediolateral oblique views along with computer-aided ?? detection (CAD). ? FINDINGS: ?? There are scattered areas of fibroglandular density (ACR BI-RADS breast ?? composition Category b). ? There are no significant masses, abnormal calcifications, or other ?? abnormalities. ? MM/MM tomosynthesis screening BI ?? IMPRESSION: ?? No mammographic evidence of malignancy. ? ASSESSMENT: ? BI-RADS BI-RADS 1 - Negative ? RECOMMENDATION: ?? Routine annual mammography screening. ? 1 year F/U ? This examination should not preclude the clinical evaluation of a ?? suspicious palpable abnormality. ? This patient's information was entered into a reminder system with a ?? target due date for their next mammogram. ? Electronically signed by: ??Arianna Amezquita DO ??11/28/2024 04:54 PM EST ?? RP ? Dictated By: ?Arianna Amezquita DO ? Signed By: ?<Electronically signed by Arianna Amezquita, DO in OV> ? 11/28/241653 ? DD/ 1317 ? TD/TT: 11/16/24 1327 ? Manager Multicultural: ? Procedure Note Donotuseinterpreter, Image - [facility]/28/20[facility] [address] [place] [address] Mammography Report Signed Patient: Rosalva Thomas MMR#: [id number] : 1970Acct:[id number] Age/Sex: 54 / FADM Date: 11/16/24 Loc: HO.MAMMO Attending Dr: Domi Mitchell MD Ordering Physician: Domi Mitchell MDResults: 1N egative Date of Service: 11/16/24Follow Up: 1 Year From Orig inal Mammogram Procedure(s): MM tomosynthesis screening BI Accession Number(s): [id number] cc: Domi Mitchell MD EXAMINATION: MM SCREENING DIGITAL BREAST TOMOSYNTHESIS, BILATERAL CLINICAL INFORMATION: Screening. Asymptomatic. COMPARISON: Mammography: Comparison is made with available priors TECHNIQUE: Digital breast mammography with tomosynthesis is performed in both the craniocaudal and mediolateral oblique views along with computer-aided detection (CAD). FINDINGS: There are scattered areas of fibroglandular density (ACR BI-RADS breast composition Category b). There are no significant masses, abnormal calcifications, or other abnormalities. MM/MM tomosynthesis screening BI IMPRESSION: No mammographic evidence of malignancy. ASSESSMENT: BI-RADS BI-RADS 1 - Negative RECOMMENDATION: Routine annual mammography screening. 1 year F/U This examination should not preclude the clinical evaluation of a suspicious palpable abnormality. This patient's information was entered into a reminder system with a target due date for their next mammogram. Electronically signed by: Arianna Amezquita DO 11/28/2024 04:54 PM EST RP Dictated By: Arianna Amezquita DO Signed By: <Electronically signed by Arianna Amezquita DO in OV> 11/28/24 1654 DD/ 1317 TD/TT: 11/16/24 1327 Manager Multicultural: Domi Mitchell MD IMG BI PROCEDURES Final Re sult * Hepatitis A,B,C Profile (02/11/2024 10:55 AM EDT) Hepatitis A IgM Nonreactive Nonreactive [facility] Comment:IgM antibodies to MARR V not detected; does not exclude earlyacute or recovered HAV infection. ~Hepatitis B Surface Antibody NONREACTIVE Nonreactive [facility] Comment:Nonreactive: < 8.00 mIU/mL Hepatitis B Core Antibody Nonreactive Nonreactive [facility] Hepatitis C Antibody Nonreactive Nonreactive [facility] Comment:Antibodies to HCV no t detected; does not exclude early acuteHCV infection. Hepatitis B Surface Ag Negative Negative [facility] Blood Venous blood specimen / Unknown 02/11/2024 10:55 AM EDT 02/11/2024 11:14 AM EDT Domi Mitchell MD LAB BLOOD ORDERABLES Final Result [facility] [address] [place] [phone] * HIV-1/2 Antigen and Antibodies, Fourth Generation, with Reflexes (02/11/2024 10:55 AM EDT) HIV AB/AG Nonreactive Nonreactive [facility] Comment:HIV-1 p24 Ag and/or HIV-1/HIV-2 Ab not detected.A test result that is nonreactive does not exclude thepossibility of exposure to or infection with HIV-1 and/orHIV-2. Nonreactive results in this assay for individualswith prior exposure to HIV-1 and/or HIV-2 may be due toantigen and antibody levels that are below the limit ofdetection of this assay.The [email or web address] HIV Ag/Ab Combo assay result andsupplemental assay results should be interpreted inconjunction with the patient's clinical presentation,history and other laboratory results. If the results areinconsistent with clinical evidence, additional testing issuggested to confirm the result. Blood Venous blood specimen / Unknown 02/11/2024 10:55 AM EDT 02/11/2024 11:14 AM EDT Domi Mitchell MD LAB BLOOD ORDERABLES Final Result [facility] [address] [place] [address] [phone] * Hm Colonoscopy (01/31/2022) Colonoscopy cologuard Historical Provider HEALTH MAINTENANCE Final Result * THINPREP TIS PAP AND HPV mRNA E6/E7, CT/NG, TRICH (09/11/2021 3:55 PM EDT) Chlamydia trachomatis RNA, TMA, Urogenital NOT DETECTED NOT DETECTED [facility] Clinical Information: None given [facility] COMMENT SEE COMMENT [facility] Comment: The analytical performance characteristics of this assay, when used to test SurePath(TM) specimens have been determined by [employer]. The modifications have not been cleared or approved by the FDA. This assay has been validated pursuant to the CLIA regulations and is used for clinical purposes. ?? For additional information, please refer to https://education.[employer] Energy/faq/DLI670 (This link is being provided for information/ educational purposes only.) ?? COMMENT SEE COMMENT [facility] Comment: EXPLANATORY NOTE: ? The Pap is a screening test for cervical cancer. It is ?? not a diagnostic test and is subject to false negative ?? and false positive results. It is most reliable when a ?? satisfactory sample, regularly obtained, is submitted ?? with relevant clinical findings and history, and when ?? the Pap result is evaluated along with historic and ?? current clinical information. ?? COMMENT: This Pap test has been evaluated with computer assisted technology. [facility] Electron Beam Machine Welder Setter: SEE COMMENT [facility] Comment: MAERICK Arredondo(ASCP) CT screening location: [address] ??[address] HPV nRNA E6/E7 Not Detected Not Detected [facility] Comment: Methodology: Drive Tester-Mediated Amplification This assay detects E6/E7 viral messenger RNA (mRNA) from 14 high-risk HPV types (16,18,31,33,35,39,45,51,52,56,58,59,66,68). ? The analytical performance characteristics of this assay have been determined by [employer]. The modifications have not been cleared or approved by the FDA. This assay has been validated pursuant to the CLIA regulations and is used for clinical purposes. ?? For additional information, please refer to http://Radiance.[employer]/faq/WDK726u3 (This link if provided for information/ educational purposes only.) Infection Shift in vaginal saha suggestive of bacterial vaginosis. [facility] Interpretation/Re sult: Negative for intraepithelial lesion or malignancy. [facility] LMP: NONE GIVEN [facility] Neisseria gonorrhoeae RNA, TMA, Urogenital NOT DETECTED NOT DETECTED [facility] Prev. BX: NONE GIVEN [facility] Prev. PAP: NONE GIVEN [facility] SOURCE: None given [facility] Statement Of Adequacy: SEE COMMENT [facility] Comment: Satisfactory for evaluation. Endocervical/transformation zone component present. Age and/or menstrual status not provided Trichomonas vaginalis, QL, TMA, PAP Vial NOT DETECTED NOT DETECTED [facility] Comment: The analytical performance characteristics of this assay have been determined by [employer]. The modifications have not been cleared or approved by the FDA. This assay has been validated pursuant to the CLIA regulations and is used for clinical purposes. ?? For additional information, please refer to http://education.[employer]/ faq/Trichomonastma (This link is being provided for information/ educational purposes only.) ?? 09/11/2021 3:55 PM EDT Domi Mitchell MD LAB PATHOLOGY ORDERABLES F inal Result [facility] [address] [place] [address], * Pap Smear (09/11/2021 12:00 AM EDT) Swab Domi Mitchell MD LAB CYTOLOGY ORDERABLES Fi nal Result Performing Organization Address City/[facility]/ZIP Co de Phone Number [facility] [address], [place] [address] from Last 3 Months or Most Recently Relevant to Health Maintenance Insurance [facility] HMO Advance Directives Documents on File Type Date Recorded Patient Locate Technician Expl anation Advance Directives and Livin g Will 02/11/2024 Health Care Proxy Care Teams Construction Plant Operator Relationship Specialty Start Date End Date Domi Mitchell MD [address] [place] [phone] PCP - General Family Medicine 11/22/18
--- OUTSIDE RECORDS SUMMARY | 2025-03-07 11:37 | XMS_ITS | Encounter Summary ---
Author Organization [employer] Address [address] [facility] [address] [place] [address] Care Team Providers Care Water Supervisor Name Role Phone Domi Mitchell MD Primary Care Provider +1- [phone] Reason for Visit * Reason Comments toe swelling Encounter Details Date Type Department Care Team (Late st Contact Info) Description 03/07/2025 9:20 AM EDT Office Visit [facility] [address] [place] [address] Pain of great toe, left (Primary Dx); Benign hypertension; Pain Social History Tobacco Use Types Packs/Day Years [...] AM EDT documented as of this encounter Last Filed Vital Signs Vital Sign Reading Time Taken Comments Blood Pressure 174/104 03/07/2025 10:14 AM EDT Pulse 67 03/07/2025 9:22 AM EDT Temperature 36.7 ??C (98 ??F) 03/07/2025 9:22 AM EDT Respiratory Rate 17 03/07/2025 9:22 AM EDT Oxygen Saturation 96% 03/07/2025 9:22 AM EDT Inhaled Oxygen Concentration - - Weight 108 kg (238 lb 9.6 oz) 03/07/2025 9:22 AM EDT Height - - Body Mass Index 43.64 02/14/2025 2:51 PM EDT documented in this encounter Plan of Treatment Upcoming Encounters Date Type Department Care Team (Late st Contact Info) Description 03/13/2025 3:30 PM EDT Clinical Support [facility] [address] [place] [address] Scheduled Orders Name Type Priority Associated Diagnoses Orde r Schedule Lyme Disease Ab with Reflex to Blot (IgG, IgM) Lab Routine Pain of great toe, left Expected: 03/07/2025, Expires: 03/07/2026 LUIZA Screen,IFA, with Reflex to Titer and Pattern Lab Routine Pain of great toe, left Expected: 03/07/2025 (Approximate), Expires: 03/07/2026 Rheumatoid Factor Lab Routine Pain of great toe, left Expected: 03/07/2025 (Approximate), Expires: 03/07/2026 Uric acid Lab Routine Pain of great toe, left Expected: 03/07/2025 (Approximate), Expires: 03/07/2026 documented as of this encounter Procedures Procedure Name Priority Date/Time Associated Diagnosis Comments XR TOES 2+ VIEWS LEFT Routine 03/07/2025 10:05 AM EDT Pain of great toe, left documented in this encounter Results * XR Toes 2+ Left (03/07/2025 10:05 AM EDT) Anatomical Region Laterality Modality Lower Extremities, Toes Left Radiogra phic Imaging 03/07/2025 10:0 5 AM EDT Narrative 03/07/2025 11:03 AM EDT ?[facility] ?[address] ?[place] [address] ?XRay Report ? Signed ? Patient: Rosalva Thomas ?MR#: [id number] ?? [id number] ? : 1970 ?Acct:[id number] ? Age/Sex: 54 / F ?ADM Date: 03/07/25 ? Loc: HO.HHCX ? Attending Dr: Sabas Franklin MD ? Ordering Physician: SABAS FRANKLIN MD ?? Date of Service: 03/07/25 ?? Procedure(s): XR toe LT min 2V ?? Accession Number(s): [id number] ? cc: SABAS FRANKLIN MD ? EXAMINATION: ??XR TOES 2 OR [...] ??Jhon Martinez MD ??03/07/2025 11:01 AM EDT ?? RP ? Dictated By: ?Jhon Martinez MD ? Signed By: ?<Electronically signed by Jhon Martinez MD in OV> ?03/07/25 1101 ? DD/ 1005 ? TD/TT: 03/07/25 1055 ? Lens Edge Grinder Machine: ? Procedure Note Yunior, Image - 03/07/[address] [address] XRay Report Signed Patient: Rosalva Thomas MMR#: [id number] : 1970Acct:[id number] Age/Sex: 54 / FADM Date: 03/07/25 Loc: .HHCX Attending Dr: Sabas Franklin MD Ordering Physician: SABAS FRANKLIN MD Date of Service: 03/07/25 Procedure(s): XR toe LT min 2V Accession Number(s): [id number] cc: SABAS FRANKLIN MD EXAMINATION: XR TOES 2 OR MORE [...] Jhon Martinez MD 03/07/2025 11:01 AM EDT Dictated By: Jhon Martinez MD Signed By: <Electronically signed by Jhon Martinez MD in OV> 03/07/25 1101 DD/ 1005 TD/TT: 03/07/25 1055 Lens Edge Grinder Machine: Sabas Franklin MD IMG XR PROCEDURES Final Result documented in this encounter Visit Diagnoses Diagnosis Pain of great toe, left- Primary Benign hypertension Essential hypertension, benign Pain Generalized pain documented in this encounter Additional Health Concerns Assessment Noted Time PHQ-9 Depression Total Score: 0 02/11/20 24 9:44 AM EDT documented as of this encounter Care Teams Water Supervisor Relationship Specialty Start Date End Date [place], Domi, MD [address] [place] [address] PCP - General Family Medicine 11/22/18 documented as of this encounter
--- OUTSIDE RECORDS SUMMARY | 2025-03-07 11:37 | XMS_ITS | Encounter Summary ---
Author Organization [employer] Address [address] [place] [address] 7t [place] [address] Care Team Providers Care Leather Belt Maker Name Role Phone Domi Mitchell MD Primary Care Provider +1- [phone] Encounter Details Date Type Department Care Team (Late Contact Info) Description 12/08/2022 Abstract [facility] [address] [place] [address] Domi Mitchell MD [address] [place] [address] Social History Tobacco Use Types Packs/Day Years [...] suspected to have Coronavirus/COVID-19? No / Unsure 12/07/2022 9:25 AM EST documented as of this encounter Plan of Treatment Upcoming Encounters Date Type Department Care Team (Late Contact Info) Description 03/13/2025 3:30 PM EDT Clinical Support [facility] [address] [place], [place] [phone] documented as of this encounter Visit Diagnoses Not on filedocumented in this encounter Care Teams Leather Belt Maker Relationship Specialty Start Date End Date Domi Mitchell MD [address] [place] [address] PCP - General Family Medicine 11/22/18 documented as of this encounter
== END 2025-03-07 10:06 | disposition home or self-care (01) ==
LOC: HO.HHCX 10:05
PROVIDERS: Visit Provider Emergency Medicine
DX: M79.675 Pain in left toe(s) (principal)
CPT/HCPCS: 73660

== ENCOUNTER → 2025-03-07 10:05 | Outpatient (BNV) | payer BC, SELFPAY | PROVIDERS: Visit Provider Radiology Diagnostic Radiology | DX: M79.675 Pain in left toe(s) (principal) | CPT/HCPCS: 73660 ==

== ENCOUNTER 2025-03-07 10:28 | Outpatient (REF) | payer BC, SELFPAY ==
[2025-03-07 11:36] LABS: Uric Acid 6.2 mg/dL (2.4-5.7)
[2025-03-07 11:59] LABS: TSH reflex Free T4 0.34 uIU/mL (0.32-4.0)
--- OUTSIDE RECORDS SUMMARY | 2025-03-07 12:17 | XMS_ITS | Encounter Summary ---
Author Organization [employer] Address [address] [facility] 7t [place] [address] Care Team Providers Care Tobacco Dipper Name Role Phone Domi Mitchell MD Primary Care Provider +1- [phone] Encounter Details Date Type Department Care Team (Late st Contact Info) Description 01/02/2025 Orders Only [facility] [address] [place] [address] Domi Mitchell MD [address] [place] [address] Social History Tobacco Use Types Packs/Day Years [...] Description 03/13/2025 3:30 PM EDT Clinical Support [facility] [address] [place] [address] documented as of this encounter Visit Diagnoses Not on filedocumented in this encounter Additional Health Concerns Assessment Noted Time PHQ-9 Depression Total Score: 0 02/11/20 24 9:44 AM EDT documented as of this encounter Care Teams Tobacco Dipper Relationship Specialty Start Date End Date Domi Mitchell MD [address] [place] [address] PCP - General Family Medicine 11/22/18 documented as of this encounter
--- OUTSIDE RECORDS SUMMARY | 2025-03-07 12:17 | XMS_ITS | Encounter Summary ---
Author Organization [employer] Address [address] [facility] 7t [place] [address] Care Team Providers Care Bevel Gear Generator Operator Name Role Phone Domi Mitchell MD Primary Care Provider +1- [phone] Reason for Visit * Reason Comments toe swelling Encounter Details Date Type Department Care Team (Late st Contact Info) Description 03/07/2025 9:20 AM EDT Office Visit [facility] [address] [place] [address] Pain of great toe, left (Primary Dx); [...] Description 03/13/2025 3:30 PM EDT Clinical Support [facility] [address] [place] [address] Scheduled Orders Name Type Priority Associated Diagnoses [...] Procedure Name Priority Date/Time Associated Diagnosis Comments URIC ACID Routine 03/07/2025 10:30 AM EDT Pain of great toe, left XR TOES 2+ VIEWS LEFT Routine 03/07/2025 10:05 AM EDT Pain of great toe, left documented in this encounter Results * (ABNORMAL) Uric acid (03/07/2025 10:30 AM EDT) Uric Acid 6.2(H) 2.4 - 5.7 mg/dL [facility] Blood Venous blood specimen / Unknown 03/07/2025 10:30 AM EDT 03/07/2025 11:14 AM EDT us Sabas Franklin MD LAB BLOOD ORDERABLES Final Resul t [facility] [address] [place] [address] [phone] * XR Toes 2+ Left (03/07/2025 10:05 AM EDT) Anatomical Region Laterality Modality Lower Extremities, Toes Left Radiogra phic Imaging 03/07/2025 10:0 5 AM EDT Narrative 03/07/2025 11:03 AM EDT ?[facility] ?[address] ?[place] [address] ?XRay Report ? Signed ? Patient: Deschaine,Rosalva M ?MR#: [id number] ?? [id number] ? : 1970 ?Acct:[id number] ? Age/Sex: 54 / F ?ADM Date: 04/16/25 ? Loc: HO.HHCX ? Attending Dr: Sabas Franklin MD ? Ordering Physician: SABAS FRANKLIN MD ?? Date of Service: 03/07/25 ?? Procedure(s): XR toe LT min 2V ?? Accession Number(s): [id number] ? cc: SABAS FRANKLIN MD ? EXAMINATION: [...] DD/ 1005 ? TD/TT: 03/07/25 1055 ? Applications Development Consultant: ? Procedure Note Calos Mojica - 03/07/[address] [address] XRay Report Signed Patient: Rosalva Thomas MMR#: [id number] : 1970Acct:[id number] Age/Sex: 54 / FADM Date: 03/07/25 Loc: HO.HHCX Attending Dr: Sabas Franklin MD Ordering Physician: SABAS FRANKLIN MD Date of Service: 03/07/25 Procedure(s): XR toe LT min 2V Accession Number(s): [id number] cc: SABAS FRANKLIN MD EXAMINATION: XR TOES [...] 03/07/25 1101 DD/ 1005 TD/TT: 03/07/25 1055 Applications Development Consultant: Sabas Franklin MD IMG XR PROCEDURES Final Result documented in this encounter Visit Diagnoses Diagnosis Pain of great toe, left- Primary Benign hypertension Essential hypertension, benign Pain Generalized pain documented in this encounter Additional Health Concerns Assessment Noted Time PHQ-9 Depression Total Score: 0 02/11/20 24 9:44 AM EDT documented as of this encounter Care Teams Bevel Gear Generator Operator Relationship Specialty Start Date End Date Domi Mitchell MD [address] [place] [address] PCP - General Family Medicine 11/22/18 documented as of this encounter
--- OUTSIDE RECORDS SUMMARY | 2025-03-07 12:17 | XMS_ITS | Clinical Summary ---
Author Organization [employer] Address [address] [facility] 7t [place] [address] Care Team Providers Care Heating Element Builder Name Role Phone Domi Mitchell MD Primary Care Provider +1- [phone] Allergies Active Allergy Reactions Criticality Noted Date [...] physical due after 02/14/26 -Referral made to [facility] 02/11/2024 -dental home is [facility] -[facility] care proxy paperwork completed by the patient 02/11/2024 Assessment & Plan (02/14/2025 3:10 PM EDT): -next physical due after 02/14/26 -Referral made to [facility] 02/11/2024 -dental home is [facility] -[facility]ax care proxy paperwork completed by the patient 02/11/2024 Assessment & Plan (02/11/2024 10:20 AM EDT): -next physical due after 02/10/2025 -Referral made to [facility] 02/11/2024 -dental home is [facility] -mc care proxy paperwork completed by the patient 02/11/2024 Family planning 12/11/2022 Overview (12/11/2022): She had mirena sometimes in 2016 with food chemist but recalled me putting it in. She is due for having it removal will refer to Angeli goldman Assessment & Plan (12/11/2022 9:00 AM EST): She had mirena sometimes in 2016 with food chemist but recalled me putting it in. She [...] Description 03/07/2025 9:20 AM EDT Office Visit [facility] [address] [place] [phone] Pain of great toe, left (Primary Dx); Benign hypertension; Pain 03/06/2025 Telephone [facility] [address] [place] [phone] Domi Mitchell MD Nurse Triage 02/21/[address] [address] Domi Mitchell MD Results 02/21/2025 Orders Only [address] [address] Domi Mitchell MD Acquired hypothyroidism (Primary Dx) 02/17/2025 Orders Only [address] [address] Domi Mitchell MD 02/14/2025 2:45 PM EDT Office Visit [address] [address] Domi Mitchell MD Benign hypertension (Primary Dx); Acquired hypothyroidism; Class 3 severe obesity due to excess calories with body mass index (BMI) of 40.0 to 44.9 in adult, unspecified whether serious comorbidity present (CMS/HCC); Exercise counseling; Dietary counseling; Screening for colon cancer; Encounter for immunization; Other specified health status; Skin tag 02/14/2025 Travel 02/13/[address] [address] Domi Mitchell MD chartprep 02/05/2025 Patient Outreach [address] [address] Domi Mitchell MD Care Coordination (CHW outreach for SDOH food needs-referral completed /) 02/05/2025 Patient Outreach [address] [address] Domi Mitchell MD Pre-visit Planning (SDOH Screening positive and Tobacco screening negative) 01/02/2025 Orders Only [address] [address] Domi Mitchell MD 12/21/2024 9:15 AM EST Office Visit [address] [address] Domi Mitchell MD Right knee pain, unspecified chronicity (Primary Dx); Encounter for immunization; Screening for colon cancer; Acquired hypothyroidism; Dyslipidemia; Benign hypertension 12/21/2024 Travel 12/19/[address] [address] Domi Mitchell MD nurse traige 12/13/[address] [address] Domi Mitchell MD Acquired hypothyroidism; Vitamin D [...] Description 03/13/2025 3:30 PM EDT Clinical Support [address] [address] Health Maintenance Due Date Last Done Comments [...] AM EDT Pain of great toe, left TSH W/REFLEX TO FT4 Routine 03/07/2025 1 0:30 AM EDT Acquired hypothyroidism XR TOES 2+ VIEWS LEFT Routine 03/07/2025 [...] Recently Relevant to Health Maintenance Results * TSH W/Reflex to FT4 (03/07/2025 10:30 AM EDT) Only the most recent of2 resultswithin the time period is included. TSH reflex Free T4 0.34 0.32 - 4.0 uIU/mL [facility] Blood Venous blood specimen / Unknown 03/07/2025 10:30 AM EDT 03/07/2025 11:14 AM EDT Domi Mitchell MD LAB BLOOD ORDERABLES Final Result Performing Organization Address [facility] Co de Phone Number [facility] [address] [place] [address] [phone] * (ABNORMAL) Uric acid (03/07/2025 10:30 AM EDT) Uric Acid 6.2(H) 2.4 - 5.7 mg/dL [facility] Blood Venous blood specimen / Unknown 03/07/2025 10:30 AM EDT 03/07/2025 11:14 AM EDT Sabas Franklin MD LAB BLOOD ORDERABLES Final Resul t Performing Organization Address [facility] Co de Phone Number [facility] [address] [place] [address] [phone] * XR Toes 2+ Left (03/07/2025 10:05 AM EDT) Anatomical Region Laterality Modality Lower Extremities, Toes Left Radiogra phic Imaging 03/07/2025 10:0 5 AM EDT Narrative 03/07/2025 11:03 AM EDT ?[facility] ?[address] ?[place] [address] ?XRay Report ? Signed ? Patient: Deschaine,Rosalva M ?MR#: [id number] ?? [id number] ? : 1970 ?Acct:[id number] ? Age/Sex: 54 / F ?ADM Date: 04/16/25 ? Loc: HO.HHCX ? Attending Dr: Sabas Franklin MD ? Ordering Physician: SABAS FRANKLIN MD ?? Date of Service: 03/07/25 ?? Procedure(s): XR toe LT min 2V ?? Accession Number(s): [id number] ? cc: SABAS FRANKLIN MD ? EXAMINATION: [...] DD/ 1005 ? TD/TT: 03/07/25 1055 ? Elephant Keeper: ? Procedure Note Yunior, Image - 03/07/2025 [place] [address] XRay Report Signed Patient: Rosalva Thomas MMR#: [id number] : 1970Acct:[id number] Age/Sex: 54 / FADM Date: 03/07/25 Loc: HO.HHCX Attending Dr: Sabas Franklin MD Ordering Physician: SABAS FRANKLIN MD Date of Service: 03/07/25 Procedure(s): XR toe LT min 2V Accession Number(s): [id number] cc: SABAS FRANKLIN MD EXAMINATION: XR TOES [...] 03/07/25 1101 DD/ 1005 TD/TT: 03/07/25 1055 Elephant Keeper: Sabas Franklin MD IMG XR PROCEDURES Final Result * T4, Free (02/17/2025 10:09 AM EDT) Free T4 (Free Thyroxine) 1.35 0.71 - 1.85 ng/dL [facility] 02/17/2025 10:0 9 AM EDT 02/17/2025 10:09 AM EDT Result [facility] Domi Mitchell MD LAB BLOOD ORDERABLES Final Result [facility] [address] [place] [phone] * Hepatic Function Panel (02/17/2025 10:09 AM EDT) Bilirubin, Total 0.4 0.0 - 1.0 mg/dL [facility] Bilirubin, Direct 0.1 0.0 - 0.5 mg/dL [facility] Aspartate Amino Transferase 18 5 - 31 U/L [facility] Alanine Aminotransferase 15 0 - 31 U/L [facility] Total Protein 7.4 6.5 - 8.0 g/dL [facility] Albumin Level 3.9 3.5 - 5.0 g/dL [facility] Alkaline Phosphatase 76 39 - 117 U/L [facility] Blood Venous blood specimen / Unknown 02/17/2025 10:09 AM EDT 02/17/2025 10:09 AM EDT Domi Mitchell MD LAB BLOOD ORDERABLES Final Result Performing Organization Address City/[facility]/ZIP Co de Phone Number [facility] [address] [place] [address] [phone] * (ABNORMAL) Lipid Panel, Standard (02/17/2025 10:09 AM EDT) Triglycerides 87 <150 mg/dL [facility] Comment:Desirable Triglyceri de: less than 150 mg/dLBorderline High Triglyceride 150-199 mg/dLHigh Triglyceride: 200-499 mg/dLVery High Triglyceride: greater than or equal to 5OO mg/dL Cholesterol 159 <200 mg/dL [facility] Comment:Desirable Cholestero l: less than 200 mg/dLBorderline High Cholesterol: 200-239 mg/dLHigh Cholesterol: greater than 239 mg/dL LDL Cholesterol Calculated 102(H) <100 mg/dL [facility] Comment:Desirable LDL: less than 100 mg/dLNear Optimal/Above Optimal LDL: 110- 129 mg/dLBorderline High LDL: 130-159 mg/dLHigh LDL: 160-189 mg/dLVery High LDL: greater than or equal to 190 mg/dL HDL Cholesterol 40(L) >40 mg/dL [facility] Comment:Desirable HDL: great er than 40 mg/dL Note: This HDL assay may give artificially low results in patients with liver disease. Blood Venous blood specimen / Unknown 02/17/2025 10:09 AM EDT 02/17/2025 10:09 AM EDT Domi Mitchell MD LAB BLOOD ORDERABLES Final Result Performing Organization Address City/[facility]/ZIP Co de Phone Number [facility] [address] [place] [address] [phone] * (ABNORMAL) Basic Metabolic Panel (02/17/2025 10:09 AM EDT) Sodium 141 135 - 145 mmol/L [facility] Potassium 4.7 3.3 - 5.1 mmol/L [facility] Chloride 110(H) 96 - 108 mmol/L [facility] Carbon Dioxide 26 22 - 29 mmol/L [facility] Anion Gap 10(L) 12 - 20 [facility] Urea Nitrogen (BUN) 18(H) 9 - 16 mg/dL [facility] Creatinine, Serum 0.79 0.5 - 1.4 mg/dL [facility] Estimated Glomerular Filt Rate >60 [facility] Comment:Chronic Kidney Disea se: Estimated GFR < 60 mL/min/1.96b9Nheowe Kidney Disease: Estimated GFR < 15 mL/min/1.73m2 Glucose 96 60 - 115 mg/dL [facility] Calcium 9.0 8.4 - 10.2 mg/dL [facility] Blood Venous blood specimen / Unknown 02/17/2025 10:09 AM EDT 02/17/2025 10:09 AM EDT Domi Mitchell MD LAB BLOOD ORDERABLES Final Result Performing Organization Address City/State/[facility] Co de Phone Number [facility] [address] [place] [phone] * FIT DNA/Cologuard Cancer Screening (02/15/2025) [...] ??Alternatives discussed: ??Observation, referral and no treatment Rosie protocol: ??Procedure explained and questions answered to [...] ??Malignancy: benign lesion ?Closure complexity: simple ?? Domi Mitchell MD DERM PROCEDURE ORDERABLES Final Result * Cologuard?? colon cancer screening (02/13/2025 7:30 AM EDT) Cologuard Result Negative Negative 02/18/20 4:43 PM EDT [employer] (CLIA #:[id number]) Comment: NEGATIVE TEST RESULT. A negative Cologuard [...] (Tamar Hung al, N Engl J Med 2014;370(14):1286- 1297) The normal value (reference range) for this assay is negative. COLOGUARD RE-SCREENING RECOMMENDATION: Periodic colorectal cancer screening is an important part of preventive healthcare for asymptomatic individuals at average risk for colorectal cancer. ??Following a negative Cologuard result, the [place] Cancer Society and U.S. Multi-Society Task Force screening guidelines recommend a Cologuard re-screening interval of 3 years. References: [place] [employer] Guideline for Colorectal Cancer Screening: https://www.cancer.org/cancer/utnlf-ypocni-demfrn/kewwjhprh-zqylhmnbg-vexjqug/ac s-rec ommendations.html.; Ricardo DK, Judi CR, Mendez JuniorK, Colorectal Cancer Screening: Recommendations for Physicians and Patients from the U.S. Multi-Society Task Force on Colorectal Cancer Screening , Am J Gastroenterology 2017; 112:6693-6577. TEST DESCRIPTION: Composite algorithmic analysis of stool [...] (Tamar Hung al, N Engl J Med 2014;370(14):7455-1107.) Cologuard may produce a false negative or false positive result (no colorectal cancer or precancerous polyp present at colonoscopy follow up). A negative Cologuard test result does not guarantee the absence of CRC or advanced adenoma (pre-cancer). The current Cologuard screening interval is every 3 years. ([place] [employer] Society and U.S. Multi-Society Task Force). Cologuard performance data in a 10,000 patient pivotal study using colonoscopy as the reference method can be accessed at the following location: www.LUVHAN.[employer]/results. Additional description of the Cologuard test process, warnings and precautions can be found at www.[employer]Catch.com. Stool specimen (specimen) 02/13/2025 7:30 AM EDT 02/15/2025 12:39 PM EDT us Domi Mitchell MD LAB MOLECULAR DIAGNOSTICS ORDERABLES Final Result [facility] (CLIA #:[id number]) [address] [place] [address], * BI Mammogram Screening Tomosynthesis Bilateral (11/16/2024 1:17 PM EST) Anatomical Region Laterality Modality Breast Bilateral Mammography 11/16/2024 1:17 PM EST Narrative 11/28/2024 4:57 PM EST ? [facility] ? [address] ?[place] [address] ? Mammography Report ? Signed ? Patient: Descronnie,Rosalva M ?MR#: [id number] ?? [id number] ? : 1970 ?Acct:[id number] ? Age/Sex: 54 / F ?ADM Date: 11/16/24 ? Loc: HO.MAMMO ? Attending Dr: Domi Mitchell MD ? Ordering Physician: Domi Mitchell MD ?Results: 1N ?? egative ? Date of Service: //24 ?Follow Up: 1 Year From Orig ?? inal Mammogram ? Procedure(s): MM tomosynthesis screening BI ?? Accession Number(s): [id number] ? cc: Domi Mitchell MD ? EXAMINATION: [...] ??Arianna Amezquita DO ??11/28/2024 04:54 PM EST ? Dictated By: ?Arianna Amezquita DO ? Signed By: ?<Electronically signed by Arianna Amezquita, DO in OV> ? 11/28/24 1654 ? DD/ 1317 ? TD/TT: 11/16/24 1327 ? Elephant Keeper: ? Procedure Note Doneulogioter, Image - 11/28/2024 [facility] [address] [place] [address] [place] [address] Mammography Report Signed Patient: Rosalva Thomas MMR#: [id number] : 1970Acct:[id number] Age/Sex: 54 / FADM Date: 11/16/24 Loc: HO.MAMMO Attending Dr: Domi Mitchell MD Ordering Physician: Domi Mitchell MDResults: 1N egative Date of Service: 11/16/24Follow Up: 1 Year From Orig ina Mammogram Procedure(s): MM tomosynthesis screening BI Accession Number(s): [id number] cc: Domi Mitchell MD EXAMINATION: MM SCREENING [...] by: Arianna Amezquita DO 11/28/2024 04:54 PM [facility] Dictated By: Arianna Amezquita DO Signed By: <Electronically signed by Arianna Amezquita DO in OV> 11/28/24 1654 DD/ 1317 TD/TT: 11/16/24 1327 Elephant Keeper: us Domi Mitchell MD IMG BI PROCEDURES Final Re sult * Hepatitis A,B,C Profile (02/11/2024 10:55 AM EDT) Hepatitis A IgM Nonreactive Nonreactive [facility] Comment:IgM antibodies to MARR V not detected; does not exclude earlyacute or recovered HAV infection. ~Hepatitis B Surface Antibody NONREACTIVE Nonreactive [facility] Comment:Nonreactive: < 8.00 mIU/mL Hepatitis B Core Antibody Nonreactive Nonreactive [facility] Hepatitis C Antibody Nonreactive Nonreactive [facility] Comment:Antibodies to HCV no t detected; does not exclude early acuteHCV infection. Hepatitis B Surface Ag Negative Negative [facility] Blood Venous blood specimen / Unknown 02/11/2024 10:55 AM EDT 02/11/2024 11:14 AM EDT Domi Mitchell MD LAB BLOOD ORDERABLES Final Result Performing Organization Address [facility]/ZIP Co de Phone Number [facility] [address] [place] [address] [phone] * HIV-1/2 Antigen and Antibodies, Fourth Generation, with Reflexes (02/11/2024 10:55 AM EDT) HIV AB/AG Nonreactive Nonreactive [facility] Comment:HIV-1 p24 Ag and/or HIV-1/HIV-2 Ab not detected.A test result that is nonreactive does not exclude thepossibility of exposure to or infection with HIV-1 and/orHIV-2. Nonreactive results in this assay for individualswith prior exposure to HIV-1 and/or HIV-2 may be due toantigen and antibody levels that are below the limit ofdetection of this assay.The [employer]essel HIV Ag/Ab Combo assay result andsupplemental assay results should be interpreted inconjunction with the patient's clinical presentation,history and other laboratory results. If the results areinconsistent with clinical evidence, additional testing issuggested to confirm the result. Blood Venous blood specimen / Unknown 02/11/2024 10:55 AM EDT 02/11/2024 11:14 AM EDT Domi Mitchell MD LAB BLOOD ORDERABLES Final Result Performing Organization Address City/[facility]/ZIP Co de Phone Number [facility] [address] [place] [phone] [phone] * Hm Colonoscopy (01/31/2022) Colonoscopy cologuard Bozena Torres MD HEALTH MAINTENANCE Final Result * THINPREP TIS PAP AND HPV mRNA E6/E7, CT/NG, TRICH (09/11/2021 3:55 PM EDT) Chlamydia trachomatis RNA, TMA, Urogenital NOT DETECTED NOT DETECTED [facility] Clinical Information: None given [facility] COMMENT SEE COMMENT [facility] Comment: The analytical performance characteristics of this assay, when used to test SurePath(TM) specimens have been determined by [employer]. The modifications have not been cleared or approved by the FDA. This assay has been validated pursuant to the CLIA regulations and is used for clinical purposes. ?? For additional information, please refer to https://Spacenet.Rocketick/faq/SOE112 (This link is being provided for information/ [...] has been evaluated with computer assisted technology. [facility] Baseball Club Manager: SEE COMMENT [facility] Comment: MAMaria [place], CT(ASCP) CT screening location: [address] ??[address] HPV nRNA E6/E7 Not Detected Not Detected [facility] [employer] [facility] Comment: Methodology: Service Member-Mediated Amplification This assay detects E6/E7 viral messenger RNA (mRNA) from 14 high-risk HPV types (16,18,31,33,35,39,45,51,52,56,58,59,66,68). ? The analytical performance characteristics of this assay have been determined by [employer]. The modifications have not been cleared or approved by the FDA. This assay has been validated pursuant to the CLIA regulations and is used for clinical purposes. ?? For additional information, please refer to http://Spacenet.Rocketick/faq/LOB554x9 (This link if provided for information/ educational purposes only.) Infection Shift in vaginal asha suggestive of bacterial vaginosis. [facility] Interpretation/Re sult: Negative for intraepithelial lesion or malignancy. [facility] LMP: NONE GIVEN [facility] N [...] of this assay have been determined by [employer]. The modifications have not been cleared or approved by the FDA. This assay has been validated pursuant to the CLIA regulations and is used for clinical purposes. ?? For additional information, please refer to http://education.Rocketick/ faq/Trichomonastma (This link is being provided for information/ educational purposes only.) ?? 09/11/2021 3:55 PM EDT Domi Mitchell MD LAB PATHOLOGY ORDERABLES F inal Result [facility] [address] * Pap Smear (09/11/2021 12:00 AM EDT) Swab Domi Mitchell MD LAB CYTOLOGY ORDERABLES Fi nal Result Performing Organization Address City/[facility]/ZIP Co de Phone Number [address], [place] [address] from Last 3 Months or Most Recently Relevant to Health Maintenance Insurance [facility] HMO Advance Directives Documents on File Type Date Recorded Patient Ion Exchange Operator Expl anation Advance Directives and Livin g Will 02/11/2024 Health Care Proxy Care Teams Heating Element Builder Relationship Specialty Start Date End Date Paula, MD Domi [address] [place] [phone] PCP - General Family Medicine 11/22/18
--- OUTSIDE RECORDS SUMMARY | 2025-03-07 12:17 | XMS_ITS | Encounter Summary ---
Author Organization [employer] Address [address] [place] [address] [address] [place] [address] Care Team Providers Care Manager Unix Name Role Phone Domi Mitchell MD Primary Care Provider +1- [phone] Encounter Details Date Type Department Care Team (Late st Contact Info) Description 12/14/2022 Abstract [facility] [address] [place] [address] Domi Mitchell MD [address] [place] [address] Dietary counseling; Exercise counseling Social History Tobacco [...] 03/13/2025 3:30 PM EDT Clinical Support [facility] [address] [place] [address] documented as of this encounter Procedures Procedure [...] documented as of this encounter Care Teams Manager Unix Relationship Specialty Start Date End Date Domi Mitchell MD [address] [place] [address] PCP - General Family Medicine 11/22/18 documented as of this encounter
--- OUTSIDE RECORDS SUMMARY | 2025-03-07 12:17 | XMS_ITS | Encounter Summary ---
Author Organization [employer] Address [address] [place] [address] [address] [place] [address] Care Team Providers Care Sales Agent [employer] Insurance Name Role Phone Domi Mitchell MD Primary Care Provider +1- [phone] Encounter Details Date Type Department Care Team (Late st Contact Info) Description 11/09/2022 Orders Only [facility] [address] [place] [address] Blaire Gaytan LPN Social History Tobacco Use [...] Description 03/13/2025 3:30 PM EDT Clinical Support [facility] [address] [place], [place] [phone] documented as of this encounter Visit Diagnoses Not on filedocumented in this encounter Care Teams Sales Agent [employer] Insurance Relationship Specialty Start Date End Date Domi Mitchell MD [address] [place] [address] PCP - General Family Medicine 11/22/18 documented as of this encounter
--- OUTSIDE RECORDS SUMMARY | 2025-03-07 12:17 | XMS_ITS | Encounter Summary ---
Author Organization [employer] Address [address] [place] [address] [address]t [place] [address] Care Team Providers Care Flake Miller [employer] Name Role Phone Domi Mitchell MD Primary Care Provider +1- [phone] Encounter Details Date Type Department Care Team (Late Contact Info) Description 12/08/2022 Abstract [facility] [address] [place] [address] Domi Mitchell MD [address] [place] [address] Social History Tobacco Use Types Packs/Day Years [...] Description 03/13/2025 3:30 PM EDT Clinical Support [facility] [address] [place], [place] [phone] documented as of this encounter Visit Diagnoses Not on filedocumented in this encounter Care Teams [employer] Relationship Specialty Start Date End Date Domi Mitchell MD [address] [place] [address] PCP - General Family Medicine 11/22/18 documented as of this encounter
--- OUTSIDE RECORDS SUMMARY | 2025-03-07 12:17 | XMS_ITS | Encounter Summary ---
Author Organization [employer] Address [address] [facility] 7t [place] [address] Care Team Providers Care Fabric Worker Name Role Phone Domi Mitchell MD Primary Care Provider +1- [phone] Reason for Visit * Reason Onset Date Comments Nurse Triage 03/06/2025 Encounter Details Date Type Department Care Team (Late st Contact Info) Description 03/06/2025 Telephone [facility] [address] [place] [address] Domi Mitchell MD [address] [place] [address] Nurse Triage Social History Tobacco Use Types [...] [facility], [facility] on teams at time of call. Reviewed [facility] operating hours andthat wait times vary. Reviewed [...] toe Received: Today Dorina Dalton RN P [facility] Triage Nurse Previous Messages My toe (Newest Message First) View All Conversations on this Encounter You routed conversation to [facility] Triage Nurse5 hours ago (9:33 AM) Rosalva Rios [facility] Clinical Support (supporting Domi Mitchell MD)6 [...] Description 03/13/2025 3:30 PM EDT Clinical Support [facility] [address] [place] [address] documented as of this encounter Visit Diagnoses Not on filedocumented in this encounter Additional Health Concerns Assessment Noted Time PHQ-9 Depression Total Score: 0 02/11/20 24 9:44 AM EDT documented as of this encounter Care Teams Fabric Worker Relationship Specialty Start Date End Date Domi Mitchell MD [address] [place] [address] PCP - General Family Medicine 11/22/18 documented as of this encounter
[2025-03-07 12:18] LABS: Rheumatoid Factor < 13.0 IU/mL (<15.0)
[2025-03-08 06:23] LABS: Lyme Abs Screen <0.90 index
[2025-03-13 10:49] LABS: ANA Pattern 2 Nuclear, Speckled; Anti Nuclear Antibody Screen POSITIVE (NEGATIVE)
== END 2025-03-07 10:29 | disposition home or self-care (01) ==
LOC: HO.HHCL 10:28
PROVIDERS: Family Medicine; Visit Provider Emergency Medicine
DX: E03.9 Hypothyroidism, unspecified (principal); M79.675 Pain in left toe(s)
CPT/HCPCS: 36415; 84443; 84550; 86038; 86039; 86431; 86617; 86618